=== PATIENT | male | born 1955 | race Caucasian/White ===

== ENCOUNTER 2020-03-16 09:00 | Day surgery (SDC) | payer OTHER, SELFPAY ==
[2020-03-16] VITALS (8 sets, daily range): BP systolic 104–126; BP diastolic 55–74; PULSE 45–51; RESP 14–16; TEMP 35.9–36.5; O2SAT 94–97; BMI 25.8
[2020-03-16] MEDS: LACTATED RINGERS 1,000 ML 200 ML IV (09:33)
--- NOTE | 2020-03-16 10:40 | PM.HP.1 ---
History of Present Illness History of Present Illness Date Patient Seen: 03/16/20 Time Patient Seen: 10:40 Chief complaint: SDC Narrative: The patient presents for colorectal sreening. He had a previous normal colonoscopy at age 52. No personal or family history of colon cancer. Over the past 1 year he has had a change in his bowel function such that he is having frequent loose stools with occasional bright red blood. No unintentional weight loss he does have some associated left flank and left-sided abdominal pain. Patient History Family & Social History Social History: household members spouse Tobacco & Substance use: Smoking Status Never smoker alcohol intake current alcohol intake frequency 3 or more drinks per day Substance Use Type marijuana Meds Home Medications and Allergies Home Medications Medication Instructions Recorded Confirmed Type No Known Home Medications 03/13/20 03/13/20 History Allergies Allergy/AdvReac Type Severity Reaction Status Date / Time No Known Drug Allergies Allergy Verified 03/13/20 14:13 Review of Systems Review of Systems Narrative: A 10 point review of systems is negative except as noted in the HPI Exam Vital Signs (past 8 hours): - 03/16/20 09:19 Temperature 96.8 F L Pulse Rate 51 L Respiratory Rate 16 Blood Pressure 126/70 Pulse Oximetry 97 Oxygen Delivery Method Room Air Oxygen Flow Rate 0 Narrative Exam Narrative: General-no acute distress, well nourished adult male HEENT-moist mucous membranes, no scleral icterus Neck-supple, no lymphadenopathy Chest- non labored respirations, clear to auscultation bilaterally Cardiac-regular rate no peripheral edema Abdomen-soft, nontender, non distended Extremities-warm, well perfused Neurological-alert and oriented, no focal deficits Assessment & Plan Assessment and plan (1) Screening for colon cancer: Status: Acute Assessment & Plan narrative: The patient requires colorectal screening and colonoscopy is recommended. Technical details were discussed. Risks, benefits, alternatives explained. Risks including but not limited to myocardial infarction, aspiration, bleeding, pain, missed lesion, incomplete examination, need for further radiographic studies, colonic perforation, and need for major abdominal surgery were discussed. All questions were answered to their satisfaction, and they are in agreement with this plan.
[2020-03-16] MEDS: fentaNYL 250 MCG/5 ML INJ IV (10:46)
[2020-03-16] MEDS: MIDAZOLAM 5 MG/5 ML VIAL IV (10:46)
--- NOTE | 2020-03-16 10:52 | PM.OP.ENDO ---
Operative Date/Time/Diagnoses Date of procedure: 03/16/20 Time of procedure: 10:52 Pre-op diagnosis: screening colonoscopy Post-op diagnosis: same Procedure & Clinicians Study performed: aborted colonoscopy Same procedure as scheduled: Yes Indications: 64-year-old man with a recent change in bowel function here for screening colonoscopy. Surgeon: Shawn Moss Procedure Notes Procedure in detail: Medications: Conscious sedation using 4mg IV midazolam and 100mcg IV of fentanyl The history and physical was performed/updated and the patient is ASA class is 1. The procedure was discussed in detail with the patient. Potential risks complications including infection, bleeding, missed diagnosis, perforation, need for surgery, and were explained. Their questions were answered and informed consent was obtained. Patient was brought to the procedure room and placed standard monitoring equipment. The patient's vital signs were monitored continuously throughout the entire procedure. Prior to starting time-out was performed. The patient was placed in the left lateral recumbent position. Procedural sedation was administered. Examination began with a thorough inspection of the perianal area there was no evidence of fissures, fistulae, external hemorrhoids or cutaneous malignancy. The colonoscopy scope was then placed into the anal canal and was advanced into the rectum. The quality of the preparation was quite poor I was unable to adequately visualize the colonic mucosa secondary to the amount of residual stool. The procedure was aborted. The sedation time was 6 minutes. Specimen(s): none sent Complications: none Impression: Aborted colonoscopy Post-procedure Recommendations: Other recommendation (Repeat colonoscopy with adequate preparation) Disposition: same day surgery
== END 2020-03-16 11:59 | disposition home or self-care (01) ==
PROVIDERS: PCP Family Medicine; Referring Provider Surgery; Visit Provider Surgery
PROC: 0DJD8ZZ Inspection of Lower Intestinal Tract, Via Natural or Artificial Opening Endoscopic (ICD-10-PCS; CPT 45378; principal; 2020-03-16 10:00)
DX: K92.1 Melena (principal); R10.9 Unspecified abdominal pain; R19.4 Change in bowel habit; Z53.09 Procedure and treatment not carried out because of other contraindication
CPT/HCPCS: 45378; 99152; J2250; J3010

== ENCOUNTER 2020-03-30 08:00 | Day surgery (SDC) | payer OTHER, SELFPAY ==
[2020-03-30] VITALS (8 sets, daily range): BP systolic 122–159; BP diastolic 50–83; PULSE 46–72; RESP 10–19; TEMP 35.9–36.6; O2SAT 96–97; BMI 25.8
[2020-03-30] MEDS: LACTATED RINGERS 1,000 ML 200 ML IV (08:31)
--- NOTE | 2020-03-30 08:43 | PM.PREOP ---
Pre-operative Note COVID-19 COVID-19 status: Negative Interval Note History & Physical reviewed/Exam performed by Physician: Yes Changes to H&P: No
[2020-03-30] MEDS: MIDAZOLAM 5 MG/5 ML VIAL IV (08:56)
[2020-03-30] MEDS: fentaNYL 250 MCG/5 ML INJ IV (09:00)
--- NOTE | 2020-03-30 09:15 | PM.OP.ENDO ---
Operative Date/Time/Diagnoses Date of procedure: 03/30/20 Time of procedure: 09:15 Pre-op diagnosis: Screening colonoscopy Post-op diagnosis: same Procedure & Clinicians Study performed: Colonoscopy Same procedure as scheduled: Yes Indications: 64-year-old man last colonoscopy 12 years ago here for routine screening Procedure Notes Procedure in detail: Medications: Conscious sedation using 8mg IV midazolam and 150mcg IV of fentanyl The history and physical was performed/updated and the patient is ASA class is 1. The procedure was discussed in detail with the patient. Potential risks complications including infection, bleeding, missed diagnosis, perforation, need for surgery, and were explained. Their questions were answered and informed consent was obtained. Patient was brought to the procedure room and placed standard monitoring equipment. The patient's vital signs were monitored continuously throughout the entire procedure. Prior to starting time-out was performed. The patient was placed in the left lateral recumbent position. Procedural sedation was administered. Examination began with a thorough inspection of the perianal area there was no evidence of fissures, fistulae, external hemorrhoids or cutaneous malignancy. The colonoscopy scope was then placed into the anal canal and was advanced to the cecum, which was identified by the ileocecal valve, the appendiceal orifice and the confluence of the taenia. The scope was then slowly withdrawn examining colon thoroughly in all directions, irrigating it of any residual stool. No masses or polyps The patient tolerated the procedure well. They will be discharged once criteria are met. The prep was of good/excellent quality. The withdrawl time was 7 minutes. The sedation time was 23 minutes. Specimen(s): none sent Complications: none Impression: Normal colonoscopy Post-procedure Recommendations: Colonscopy in 10 years Disposition: same day surgery
== END 2020-03-30 09:57 | disposition home or self-care (01) ==
PROVIDERS: PCP Family Medicine; Referring Provider Family Medicine; Visit Provider Surgery
PROC: 0DJD8ZZ Inspection of Lower Intestinal Tract, Via Natural or Artificial Opening Endoscopic (ICD-10-PCS; CPT 45378; principal; 2020-03-30 09:15)
DX: Z12.11 Encounter for screening for malignant neoplasm of colon (principal)
CPT/HCPCS: 45378; 99152; J2250; J3010

== ENCOUNTER → 2020-08-21 09:19 | Outpatient (CLI) | payer OTHER, SELFPAY ==
[2020-08-21 19:32] LABS: Add Manual Diff / Slide Review NO; Basophils Absolute Auto 0 /uL (0-100); Basophils Percent Auto 0.7 % (0-2); Eosinophils Absolute Auto 100 /uL (0-450); Eosinophils Percent Auto 2.1 % (2-4); Hematocrit 41.2 % (41-53); Hemoglobin 14.1 g/dL (13.5-17.5); Lymphocytes Absolute Auto 1700 /uL (1100-4500); Mean Corpuscular HGB Conc 34.2 % (30-36); Mean Corpuscular Hemoglobin 34.9 PG (26-34); Mean Corpuscular Volume 101.9 fL (80-100); Monocytes Absolute Auto 700 /uL (0-900); Monocytes Percent Auto 14.2 % (3-14); Neutrophils Absolute Auto 2700 /uL (1500-7000); Platelet Count 157 X10^3/uL (150-400); Red Blood Cell Count 4.04 X10^6/uL (4.5-5.9); Red Cell Distribution Width 12.3 % (11.6-14.8); White Blood Cell Count 5.3 X10^3/uL (4.5-11.0)
[2020-08-21 19:57] LABS: Alanine Aminotransferase 30 IU/L (<50); Albumin 3.9 g/dL (3.5-5.0); Albumin Globulin Ratio 1.3 (1.0-2.8); Alkaline Phosphatase 64 U/L (38-126); Aspartate Aminotransferase 40 IU/L (17-59); BUN Creatinine Ratio 21.1 (6-22); Bilirubin Total 0.6 mg/dL (0.2-1.3); Blood Urea Nitrogen 20 mg/dL (9-20); Calcium 9.4 mg/dL (8.4-10.2); Carbon Dioxide 27 mmol/L (22-32); Chloride 102 mmol/L (98-107); Estimated Glomerular Filt Rate > 60.0 mL/min (>60); Globulin 3.1 g/dL (1.7-4.1); Glucose 106 mg/dL (80-110); HEMOLYSIS < 15 (0-50); Lipase 91 U/L (23-300); Potassium 4.7 mmol/L (3.4-5.1); Sodium 133 mmol/L (137-145)
[2020-08-25 09:17] LABS: Fecal Immunochemical Test Negative (Negative)
[2020-08-25 16:39] LABS: Calprotectin, Stool 32 ug/g (0-120)
== END ==
PROVIDERS: PCP Family Medicine; Visit Provider Family Medicine
DX: R19.7 Diarrhea, unspecified (principal)
CPT/HCPCS: 80053; 82274; 83690; 83993; 85025; 87045; 87899

== ENCOUNTER 2020-08-23 15:51 | Emergency (ER) | payer OTHER, SELFPAY ==
[2020-08-23 15:53] VITALS: BP 115/76; PULSE 56; RESP 19; TEMP 36.2; O2SAT 97; BMI 24.3
--- NOTE | 2020-08-23 15:57 | DI.RAD.S_ITS ---
PROCEDURE: XR KNEE RT 3V INDICATIONS: injury 2 weeks ago TECHNIQUE: 3 views of the knee were acquired. COMPARISON: None. FINDINGS: Bones: No fractures or dislocations. No suspicious bony lesions. Soft tissues: Minimal joint effusion. No suspicious soft tissue calcifications. IMPRESSION: No evidence acute bony abnormality of the right knee. If clinical suspicion and/or symptoms persist, further assessment with repeat plain films, or advanced imaging (e.g., CT, MRI, or bone scan) may be helpful for further assessment. Dictated by: Catracho Marti M.D. on 08/23/2020 at 15:44 Approved by: Catracho Marti M.D. on 08/23/2020 at 15:44
[2020-08-23] MEDS: IBUPROFEN 400 MG TABLET PO (18:27)
[2020-08-23 19:12] VITALS: BP 157/78; PULSE 72; RESP 16; O2SAT 97
--- NOTE | 2020-08-23 19:32 | ED.LOWEXIN ---
HPI - Extremity Injury (Lower) General Chief Complaint: Extremity Injury, Lower Stated Complaint: Sprained Right Knee, Swollen and Painful Time Seen by Provider: 08/23/20 18:59 Source: patient Mode of arrival: Family Vehicle Limitations: no limitations History of Present Illness HPI Narrative: Patient is a 65-year-old male who presents with right knee pain ongoing for about a month. He is unsure exactly what he did however 3 days ago he feels like he did something and is having increasing swelling and pain today. He is ambulatory without issue and wants to know what is wrong with his knee. He also is is frustrated because he has been waiting for quite some time in the emergency department and would like to make his [place] back to [facility]. complaint: knee injury Related Data Home Medications Medication Instructions Recorded Confirmed No Known Home Medications 03/13/20 08/20/20 Allergies Allergy/AdvReac Type Severity Reaction Status Date / Time No Known Drug Allergies Allergy Verified 08/23/20 15:53 Review of Systems Review of Systems Narrative: GENERAL: Denies chills,fever HEENT: Denies throat pain RESPIRATORY: Denies dyspnea, cough, wheezing CARDIOVASCULAR: Denies chest pain, palpitations GASTROINTESTINAL: Denies nausea, vomiting MUSCULOSKELETAL: See HPI SKIN: No rash, no laceration, no pruritus NEUROLOGIC: Denies weakness, dizziness, headache, numbness 8 point review of systems is negative except for those stated above and HPI Patient History Medical History Chronic shoulder pain Loose stools Social History household members: spouse Smoking Status: Never smoker alcohol intake: current Smoking Status: Never smoker alcohol intake frequency: 0-2 drinks per day Substance Use Type: marijuana Exam Initial Vital Signs Initial Vital Signs: Vital Signs Temperature 97.1 F L 08/23/20 15:53 Pulse Rate 56 L 08/23/20 15:53 Respiratory Rate 19 08/23/20 15:53 Blood Pressure 115/76 08/23/20 15:53 Pulse Oximetry 97 08/23/20 15:53 GENERAL: Well-appearing, well-nourished and in no acute distress. CARDIOVASCULAR: peripheral pulses in tact, cap refill <2 sec RESPIRATORY: No respiratory distress, speaks in full sentences without difficulty EXTREMITIES: Normal range of motion, no clubbing or edema. Neurovascularly intact Right lower extremity knee is stable he does have fluid over his patella no erythema he is ambulatory without difficulty NEUROLOGICAL: Cranial nerves II through XII grossly intact. Normal gait and speech. SKIN: Warm, dry, no petechiae, no rashes or lesions. Course Orders Ordered: Discontinued Medications Ibuprofen (Ibuprofen 400 Mg Tablet) 400 mg PO NOW ONE Stop: 08/23/20 18:23 Last Admin: 08/23/20 18:27 Dose: 400 mg Documented by: DAWN Vital Signs Vital signs: Vital Signs - 8 hr 08/23/20 19:12 Pulse Rate 72 Respiratory Rate 16 Blood Pressure 157/78 H Pulse Oximetry 97 MDM - Extremity Injury (Lower) Imaging Data Extremity x-ray #1: Radiologist's Impression: PROCEDURE: XR KNEE RT 3V INDICATIONS: injury 2 weeks ago TECHNIQUE: 3 views of the knee were acquired. COMPARISON: None. FINDINGS: Bones: No fractures or dislocations. No suspicious bony lesions. Soft tissues: Minimal joint effusion. No suspicious soft tissue calcifications. IMPRESSION: No evidence acute bony abnormality of the right knee. If clinical suspicion and/or symptoms persist, further assessment with repeat plain films, or advanced imaging (e.g., CT, MRI, or bone scan) may be helpful for further assessment. Dictated by: Catracho Marti M.D. on 08/23/2020 at 15:44 MDM Narrative Medical decision making narrative: Patient is ambulatory in the emergency department I have kindly explained we are busy and doing the best we can. At this time I recommend outpatient follow-up ice and ibuprofen. Discharge Plan Departure Patient Disposition: Home Clinical Impression: Diarrhea Right knee sprain Qualifiers: Encounter type: initial encounter Involved ligament of knee: other ligament Qualified Code(s): S83.8X1A - Sprain of other specified parts of right knee, initial encounter Instructions: DI for Knee Sprain Activity Restrictions/Additional Instructions: *You have been diagnosed with right knee sprain *What to do: Increase activity as tolerated use crutches if needed. Elevate, ice 20-30 minutes at a time. *Continue to take medications as directed Ibuprofen 600 mg every 6-8 hours as needed for [id number] pain *Follow up with your primary care provider in 2-3 days *Return to ER if you should have increasing pain, swelling or any new, worsening or concerning symptoms Prescriptions: No Action No Known Home Medications RF: 0 Referrals: Lino Thompson MD [Primary Care Provider] -
== END 2020-08-23 19:14 | disposition home or self-care (01) ==
PROVIDERS: Emergency Provider Emergency Medicine; PCP Family Medicine
DX: S83.8X1A Sprain of other specified parts of right knee, initial encounter (principal); R19.7 Diarrhea, unspecified
CPT/HCPCS: 73562; 99283

== ENCOUNTER → 2020-11-11 10:29 | Outpatient (CLI) | payer OTHER, SELFPAY ==
[2020-11-11 21:09] LABS: C-Reactive Protein Quant 0.8 mg/dL (<1.0)
[2020-11-14 21:52] LABS: Deamidated Gliadin Ab IgA 3 units (0-19); Deamidated Gliadin Ab IgG 2 units (0-19); Immunoglobulin A,Qn 201 mg/dL (61-437); t-Transglutaminase IgA <2 U/mL (0-3)
== END ==
PROVIDERS: Specialist; PCP Family Medicine; Visit Provider Family Medicine
DX: K52.9 Noninfective gastroenteritis and colitis, unspecified (principal)
CPT/HCPCS: 82784; 83516; 86140

== ENCOUNTER → 2020-11-16 12:27 | Outpatient (CLI) | payer OTHER, SELFPAY ==
[2020-11-18 12:10] LABS: Fats, Neutral Increased (.); Fats, Total Increased (.)
[2020-11-23 12:14] LABS: Pancreatic Elastase, Fecal >500 (>200)
== END ==
PROVIDERS: PCP Family Medicine; Referring Provider Specialist; Visit Provider Specialist
DX: K52.9 Noninfective gastroenteritis and colitis, unspecified (principal)
CPT/HCPCS: 82656; 82705

== ENCOUNTER → 2023-02-07 11:33 | Outpatient (CLI) | payer OTHER, SELFPAY ==
[2023-02-07 14:00] LABS: Prostate Specific Antigen 2.41 ng/mL (0.10-4.00)
== END ==
PROVIDERS: PCP Student in an Organized Health Care Education/Training Program; Referring Provider Student in an Organized Health Care Education/Training Program; Visit Provider Student in an Organized Health Care Education/Training Program
DX: Z12.5 Encounter for screening for malignant neoplasm of prostate (principal)
CPT/HCPCS: 36415; 84153